=== PATIENT | male | born 1970 | race Caucasian/White ===

== ENCOUNTER → 2021-05-05 | Outpatient (REF) ==
--- NOTE | 2021-05-05 15:34 | REP ---
INDICATION: STENOSIS. COMPARISON: None TECHNIQUE: AP, lateral, and open-mouth views FINDINGS: C6-7 disc spaces are identified. There is disc space narrowing at every level. There is anterior and posterior osteophytic ridging C4-5 and C5-6. Hypertrophic degenerative facet and uncovertebral joint changes are present at every level bilaterally. Vertebral body height and alignment is within normal limits. C7-T1 cannot be evaluated. There is no swimmer's view. IMPRESSION: Findings and limitations as described above. <Electronically signed by Logan Castro > 05/05/21 2227
== END ==
LOC: M PLAIMG 14:31
PROVIDERS: ATTEND Internal Medicine
DX: Z00.00 Encounter for general adult medical examination without abnormal findings (principal)